=== PATIENT | female | born 1960 | race Caucasian/White ===

== ENCOUNTER 2017-01-25 19:32 | Emergency (ER) | payer OTHER ==
[~2017-01-25] VITALS: Ht 160 cm; Wt 77.5 kg
[~2017-01-25 19:32] MED LIST: HYDR-3498 PO; IBUP-1542 PO; NPH10OT RIGHT EAR; ONDA4TAB35 PO
[2017-01-25 19:53] VITALS: Ht 160 cm; Wt 77.5 kg
[2017-01-25] MEDS ORDERED: AZIT250T94 PO (20:30)
[2017-01-25] MEDS ORDERED: FLUT9.9S NASAL (20:30)
[2017-01-25] MEDS ORDERED: ACET500C5 PO (20:31)
[2017-01-25] MEDS ORDERED: IBUP-1542 PO (20:31)
[2017-01-25] MEDS ORDERED: CETI10CA PO (20:32)
--- NOTE | 2017-01-25 20:37 | ERD ---
ER Documentation Chief Complaint Date/Time DATE: 01/25/17 TIME: 20:34 Chief Complaint BODY ACHES, ST, COUGH CONGESTION +FEVER X 2 DAYS HPI This 56-year-old female who presents the emergency department complaining of cough, congestion, sore throat and feeling chilled for the past 8 days. States that she think she has had a fever. States she has tried [id number] cough and cold medication. Denies any vomiting, dysuria. ROS All systems reviewed and are negative except as per history of present illness. Medications Home Meds Active Scripts Cetirizine Hcl* (Zyrtec*) 10 Mg Capsule, 10 MG PO DAILY, #10 TAB.CHEW Prov:MEL SORENSEN PA-C 01/25/17 Acetaminophen* (Tylophen*) 500 Mg Capsule, 1 CAP PO Q6H Y for PAIN AND OR ELEVATED TEMP, #30 CAP Prov:MEL SORENSEN PA-C 01/25/17 Ibuprofen* (Motrin*) 600 Mg Tab, 600 MG PO Q6, #30 TAB Prov:MEL SORENSEN PA-C 01/25/17 Fluticasone Propionate (Flonase Allergy Relief) 9.9 Ml [place].susp, 2 SPRAY NASAL DAILY, #1 BOTTLE TO EACH NOSTRIL Prov:MEL SORENSEN PA-C 01/25/17 Azithromycin* (Zithromax*) 250 Mg Tablet, 250 MG PO .ZPACK DIRECTED, #6 TAB TAKE 500 MG (2 TABS) THE FIRST DAY THEN 250 MG (1 TAB) DAYS 2-5 Prov:MEL SORENSEN PA-C 01/25/17 Hydrocodone Bit-Acetaminophen* ([place]*) 5-325 Mg Tab, 1 TAB PO DAILY Y for PAIN , #7 TAB 0 Refills Prov:MIKKI CARPENTER PA-C 08/10/15 Ondansetron Hcl* (Zofran* ODT) 4 mg -ODT Tab.disper, 4 MG PO DAILY Y for NAUSEA AND/OR VOMITING, #10 TAB 0 Refills Prov:MIKKI CARPENTER PA-C 08/10/15 Ibuprofen* (Motrin*) 600 Mg Tab, 600 MG PO BID, #30 TAB 0 Refills Prov:MIKKI CARPENTER PA-C 08/10/15 Neomycin/Polymyxin/Hydrocort* (Cortisporin* Otic) 10 Ml Susp, 4 DROP RIGHT EAR QID for 7 Days, EA Prov:SATHISH BOWLES Lacey GOYAL 03/11/15 Allergies Allergies: Coded Allergies: No Known Allergy (Unverified , 01/25/17) PMhx/Soc History of Surgery: No Anesthesia Reaction: No Hx Neurological Disorder: No Hx Respiratory Disorders: No Hx Cardiac Disorders: No Hx Psychiatric Problems: No Hx Miscellaneous Medical Probl: Yes (HTN, thyroid) Hx Alcohol Use: No Hx Substance Use: No Hx Tobacco Use: No Physical Exam Vitals Vital Signs Date Time Temp Pulse Resp B/P Pulse Ox O2 Delivery O2 Flow Rate FiO2 01/25/17 19:53 98.6 68 20 138/61 96 Physical Exam Const: No acute distress Head: Atraumatic Eyes: Normal Conjunctiva ENT: Ears TMs normal. Nose no drainage. Throat erythema no exudate no vesicles. Neck: Full range of motion..~ No meningismus. Resp: Clear to auscultation bilaterally Cardio: Regular rate and rhythm, no murmurs Abd: Soft, non tender, non distended. Normal bowel sounds Skin: No petechiae or rashes Back: No midline or flank tenderness Ext: No cyanosis, or edema Neur: Awake and alert Psych: Normal Mood and Affect Procedures/MDM This 56-year-old female presents emergency department today complaining of sore throat, cough, congestion for the past couple of days of subjective fevers for the past couple of days. Patient is afebrile here in the emergency department. Her oxygen saturation is 96%. Patient symptoms at this time consistent with upper respiratory infection and given patient's duration of symptoms and the fact she has tried [id number] medications I will treat the patient with azithromycin for possible bronchitis versus sinusitis. I do have low suspicion for pneumonia, PE, abscess, pleural effusion however of explained to the patient that this would cover her for that as well. Patient has no evident dens of strep pharyngitis, peritonsillar abscess or retropharyngeal abscess, otitis media or otitis externa. Patient was given a prescription for Tylenol, Motrin, azithromycin, Zyrtec and Flonase. At this time the patient is stable for discharge and outpatient management. Patient should follow up with their PCP in the next 1-2 days. They may return to the emergency department sooner for any persistent or worsening of symptoms. Patient understood and agreed with the plan. Departure Diagnosis: Primary Impression: URI (upper respiratory infection) URI type: unspecified URI Qualified Code: J06.9 - Upper respiratory tract infection, unspecified type Condition: Fair Patient Instructions: Preventing Common Respiratory Infections Referrals: your PCP Additional Instructions: Llame al doctor MAANA y sandra travis CHANDRIKA PARA DENTRO DE 1-2 CROOKS.Dgale a la secretaria que nosotros le instruimos hacer esta chandrika.Avise o llame si fish condicin se empeora antes de la chandrika. Regresa aqui si peor o no mejor. Take antibiotics as prescribed Take Tylenol Motrin for pain or fevers Take Zyrtec and Flonase as prescribed MEL SORENSEN PA-C Jan 25, 2017 20:36
== END 2017-01-25 20:40 | disposition home or self-care (01) ==
LOC: FTE 19:32
DX: J06.9 Acute upper respiratory infection, unspecified (principal); I10 Essential (primary) hypertension
CPT/HCPCS: 99283

== ENCOUNTER 2017-11-14 11:32 | Emergency (ER) | END 2017-11-14 14:41 | disposition home or self-care (01) ==

== ENCOUNTER 2018-03-02 06:07 | Day surgery (SDC) | END 2018-03-02 11:24 | disposition home or self-care (01) ==